=== PATIENT | female | born 1990 | race Caucasian/White ===

== ENCOUNTER 2018-08-01 16:31 | Emergency (ER) | payer SELFPAY ==
--- NOTE | 2018-08-01 17:02 | EDM.PDOC ---
ED HPI GENERAL MEDICAL PROBLEM - General Chief Complaint: Abdominal Pain Stated Complaint: STOMACH PAIN Time Seen by Provider: 08/01/18 16:53 Source of Information: Reports: Patient History Limitations: Reports: No Limitations - History of Present Illness INITIAL COMMENTS - FREE TEXT/NARRATIVE: HISTORY AND PHYSICAL: History of present illness: Patient is a 28-year-old here with complaint of pelvic pain and vaginal discharge. She states that she has been having lower abdominal cramping on and off x 2 months. For the past few days has been having a sharp pain on the mid and left lower abdomen. She states 1 week ago she started having a pinking vaginal discharge. He last period was about 2 weeks ago but states it was really light. She states she was suppose to have her Nexplanon removed 2 months ago as it is . She reports having unprotected intercourse about 2 months ago and is concerned about STD. She denies dysuria, hematuria, fevers, chills, nausea, vomiting, diarrhea. Review of systems: As per history of present illness and below otherwise all systems reviewed and negative. Past medical history: As per history of present illness and as reviewed below otherwise noncontributory. Surgical history: As per history of present illness and as reviewed below otherwise noncontributory. Social history: No reported history of drug or alcohol abuse. Family history: As per history of present illness and as reviewed below otherwise noncontributory. Physical exam: General: Patient sitting comfortably in no acute distress and nontoxic appearing HEENT: Atraumatic, normocephalic, pupils reactive, negative for conjunctival pallor or scleral icterus, mucous membranes moist, throat clear, neck supple, nontender, trachea midline. No meningeal signs. Lungs: Clear to auscultation, breath sounds equal bilaterally, chest nontender. Heart: S1S2, regular, negative for clicks, rubs, or overt murmur. Abdomen: Soft, nondistended, nontender. Negative for masses or hepatosplenomegaly. Negative for costovertebral tenderness. Pelvis: Stable nontender. Genitourinary: Moderate amount of thin yellow discharge in the vaginal vault. No cervical motion tenderness. Rectal: Deferred. Extremities: Atraumatic, negative for cords or calf pain. Neurovascular unremarkable. Neuro: Awake, alert, oriented. Cranial nerves II through XII unremarkable. Cerebellum unremarkable. Motor and sensory unremarkable throughout. Exam nonfocal. Notes: Diagnostics: UA, urine hcg, GC/chlamydia, cand/BV/trich Therapeutics: 2g Flagyl PO 1g Azithromycin PO 250mg IM Rocephin PO Prescriptions: Impression: Trichomonas vaginalis, STD screening, pelvic pain Plan: 1. Follow up with primary care provider 2. Return to ED as needed as discussed Definitive disposition and diagnosis as appropriate pending reevaluation and review of above. lower abdominal Pain Score (Numeric/FACES): 5 - Related Data Allergies Allergy/AdvReac Type Severity Reaction Status Date / Time Sulfa (Sulfonamide Allergy Rash Verified 08/01/18 16:42 Antibiotics) Home Meds: Home Meds . 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 Musculoskeletal History: Reports: Arthritis Neurological History: Reports: Other (See Below) Other Neuro History: [place] Psychiatric History: Reports: None Endocrine/Metabolic History: Reports: None Hematologic History: Reports: None Immunologic History: Reports: None Oncologic (Cancer) History: Reports: None Dermatologic History: Reports: None - Infectious Disease History Infectious Disease History: Reports: Chicken Pox, Other (See Below) Other Infectious Disease History: childhood - Past Surgical History Head Surgeries/Procedures: Reports: None HEENT Surgical History: Reports: None Cardiovascular Surgical History: Reports: None Respiratory Surgical History: Reports: None GI Surgical History: Reports: None Female Surgical History: Reports: None Endocrine Surgical History: Reports: None Neurological Surgical History: Reports: None Musculoskeletal Surgical History: Reports: None Oncologic Surgical History: Reports: None Dermatological Surgical History: Reports: None Social & Family History - Family History Family Medical History: Noncontributory - Tobacco Use Smoking Status *Q: Never Smoker Second Hand Smoke Exposure: No - Caffeine Use Caffeine Use: Reports: Tea - Recreational Drug Use Recreational Drug Use: Yes Recreational Drug Type: Reports: Marijuana/Hashish Recreational Drug Use Frequency: Weekly ED ROS GENERAL - Review of Systems Review Of Systems: ROS reveals no pertinent complaints other than HPI. ED EXAM, RENAL/ - Physical Exam Exam: See Below (see dictation) Course - Vital Signs Last Recorded V/S: Last Vital Signs Temp 97.3 F 08/01/18 16:39 Pulse 118 H 08/01/18 16:39 Resp 18 08/01/18 16:39 BP 117/77 08/01/18 16:39 Pulse Ox 98 08/01/18 16:39 - Orders/Labs/Meds Orders: Active Orders 24 hr Category Date Time Status CHLAMYDIA AND GONORRHEA BY TMA Stat Lab 08/01/18 17:25 Received CULTURE URINE [RM] Stat Lab 08/01/18 16:45 Received Labs: Laboratory Tests 08/01/18 08/01/18 08/01/18 Range/Units 16:45 16:45 17:25 Urine Color YELLOW Urine Appearance CLEAR Urine pH 5.5 (5.0-8.0) Ur Specific [place] 1.025 (1.001-1.035) Urine Protein TRACE H (NEGATIVE) mg/dL Urine Glucose (UA) NEGATIVE (NEGATIVE) mg/dL Urine Ketones TRACE H (NEGATIVE) mg/dL Urine Occult Blood NEGATIVE (NEGATIVE) Urine Nitrite NEGATIVE (NEGATIVE) Urine Bilirubin SMALL H (NEGATIVE) Urine Ictotest NEGATIVE Urine Urobilinogen 0.2 (<2.0) EU/dL Ur Leukocyte Esterase MODERATE H (NEGATIVE) Urine RBC 0-1 (0-2/HPF) Urine WBC 10-12 (0-5/HPF) Ur Epithelial Cells FEW (NONE-FEW) Calcium Oxalate Crystal FEW (NEGATIVE) Urine Bacteria FEW (NEGATIVE) Urine HCG, Qual NEGATIVE (NEGATIVE) Kasia species DNA NEGATIVE (NEGATIVE) Gardnerella DNA Probe NEGATIVE (NEGATIVE) Trichomonas DNA Probe POSITIVE H (NEGATIVE) Meds: Medications Discontinued Medications Generic Name Dose Route Start Last Admin Trade Name Chu PRN Reason Stop Dose Admin Azithromycin 1,000 mg 08/01/18 18:52 08/01/18 19:22 Zithromax PO 08/01/18 18:53 1,000 mg NOW STA Administration Ceftriaxone Sodium 250 mg/ 0.9 mls @ 0.9 mls/sec 08/01/18 18:52 08/01/18 19: 23 Lidocaine HCl IM 08/01/18 18:53 0.9 mls/sec ONETIME ONE Administration Metronidazole 2,000 mg 08/01/18 18:51 08/01/18 19:27 Metronidazole PO 08/01/18 18:52 2,000 mg NOW ONE Administration Departure - Departure Time of Disposition: 19:39 Disposition: Home, Self-Care 01 Condition: Good Clinical Impression: Trichomonal vaginitis, STD exposure, Pelvic pain - Discharge Information Referrals: PCP,None [Primary Care Provider] - Forms: ED Department Discharge Additional Instructions: The following information is given to patients seen in the emergency department who are being discharged to home. This information is to outline your options for follow-up care. We provide all patients seen in our emergency department with a follow-up referral. The need for follow-up, as well as the timing and circumstances, are variable depending upon the specifics of your emergency department visit. If you don't have a primary care physician on staff, we will provide you with a referral. We always advise you to contact your personal physician following an emergency department visit to inform them of the circumstance of the visit and for follow-up with them and/or the need for any referrals to a consulting specialist. The emergency department will also refer you to a specialist when appropriate. This referral assures that you have the opportunity for follow-up care with a specialist. All of these measure are taken in an effort to provide you with optimal care, which includes your follow-up. Under all circumstances we always encourage you to contact your private physician who remains a resource for coordinating your care. When calling for follow-up care, please make the office aware that this follow-up is from your recent emergency room visit. If for any reason you are refused follow-up, please contact the [facility] Emergency Department at and asked to speak to the emergency department charge nurse. [facility] [address] [place] [id number] [facility] Primary Care - Women's Health [address] [place] [id number] 1. Follow up with primary care provider 2. Return to ED as needed as discussed - My Orders Last 24 Hours: My Active Orders 08/01/18 16:45 CULTURE URINE [RM] Stat 08/01/18 17:25 CHLAMYDIA AND GONORRHEA BY TMA Stat - Assessment/Plan Last 24 Hours: My Active Orders 08/01/18 16:45 CULTURE URINE [RM] Stat 08/01/18 17:25 CHLAMYDIA AND GONORRHEA BY TMA Stat
[2018-08-01] MEDS ORDERED: metroNIDAZOLE 250 MG Tab PO ONE (18:51)
[2018-08-01] MEDS ORDERED: Azithromycin 250 MG Tab PO STA (18:52)
[2018-08-01] MEDS ORDERED: cefTRIAXone 250 MG in Lidocaine 1% 0.9 ML IM ONE (18:52)
--- NOTE | 2018-08-01 19:38 | US ---
INDICATION: Left pelvic pain for the last 6 weeks, spotting for 1 week TECHNIQUE: Ultrasound pelvis transabdominal and transvaginal for better assessment or to better visualize the endometrium. Real-time sonographic images with spectral and color Doppler imaging of the ovaries were obtained. COMPARISON: None FINDINGS: Uterus: 7.7 x 3.2 x 3.8 cm. Normal echotexture of the myometrium. 0.5 cm right-sided uterine fibroid. Endometrium: Transvaginal imaging was performed to better evaluate the endometrium. 3 mm in thickness. No sign of endometrial mass or fluid. Right ovary: 4.4 x 2.3 x 3.9 cm. No ovarian or adnexal masses. Normal arterial and venous blood flow. Left ovary: 2.8 x 1.9 x 2.8 cm. No ovarian or adnexal masses. Normal arterial and venous blood flow. Cul-de-sac: No significant free fluid. IMPRESSION: 0.5 cm right-sided uterine fibroid. The exam is otherwise unremarkable. Dictated by Sruthi Merchant MD @ Aug 01 2018 7:29PM Signed by Dr. Sruthi Merchant @ Aug 01 2018 7:36PM
== END 2018-08-01 19:54 | disposition home or self-care (01) ==
LOC: MW.ED 16:31
DX: A59.01 Trichomonal vulvovaginitis (principal); R10.2 Pelvic and perineal pain; Z20.2 Contact with and (suspected) exposure to infections with a predominantly sexual mode of transmission; Z88.2 Allergy status to sulfonamides
CPT/HCPCS: 76856; 81001; 81025; 87086; 87480; 87491; 87510; 87591; 87660; 96372; 99284; A9270; J0696